=== PATIENT | female | born 1975 | race African-American/Black ===

== ENCOUNTER 2020-10-25 06:45 | Emergency (ER) | payer OTHER ==
[~2020-10-25] VITALS: Ht 172.7 cm; Wt 68.0 kg
[2020-10-25] MEDS ORDERED: ACETAMINOPHEN 500 MG TAB PO ONE (07:15)
[2020-10-25 08:14] VITALS: BP 125/78
== END 2020-10-25 09:24 | disposition home or self-care (01) ==
LOC: ER 06:45
DX: U07.1 COVID-19 (principal); F17.210 Nicotine dependence, cigarettes, uncomplicated
CPT/HCPCS: 36415; 71045; 87426

== ENCOUNTER → 2021-07-26 | Outpatient (CLI) | payer BC | END | disposition home or self-care (01) | LOC: LAB 14:38 | PROVIDERS: ATTEND Nurse Practitioner | DX: Z20.822 Contact with and (suspected) exposure to COVID-19 (principal) ==

== ENCOUNTER → 2021-09-20 | Outpatient (CLI) | payer BC ==
[2021-09-20 12:29] LABS: Basophils # (auto) 0.1 10 ^3/uL (0-0.2); Basophils % (auto) 1.3 % (0.0-2.0); Eosinophils # (auto) 0.1 10 ^3/uL (0-0.8); Eosinophils % (auto) 1.3 % (0.0-7.0); Hematocrit 44.3 % (36.0-46.0); Hemoglobin 14.5 g/dL (12.2-16.2); Lymphocytes # (auto) 2.5 10 ^3/uL (0.4-5.4); Lymphocytes % (auto) 41.1 % (10.0-50.0); Mean Corpuscular Hemoglobin 29.8 pg (28.0-32.0); Mean Corpuscular Hgb Conc. 32.8 g/dL (32.0-36.0); Mean Corpuscular Volume 90.9 fL (80.0-100.0); Monocytes # (auto) 0.4 10 ^3/uL (0-1.3); Neutrophils # (auto) 3.1 10 ^3/uL (1.6-8.6); Neutrophils % (auto) 49.3 % (37.0-80.0); Red Blood Cells 4.88 10^6/uL (4.0-5.20); Red Cell Distribution Width 12.8 % (11.8-14.3); White Blood Cell 6.2 10^3/uL (4.4-10.8)
[2021-09-20 12:31] LABS: Urine Bacteria NONE SEEN /hpf (None Seen); Urine Blood 3+ /uL (Negative); Urine Specific Gravity 1.013 (1.001-1.035); Urine WBC 2 /hpf (0 - 5)
[2021-09-20 13:03] LABS: Potassium 3.7 mmol/L (3.5-5.1)
[2021-09-20 13:09] LABS: BUN/Creatinine Ratio 13.5; Bilirubin, Total 0.4 mg/dL (0.2-1.0); Total Protein 7.7 g/dL (6.4-8.2)
== END | disposition home or self-care (01) ==
LOC: LAB 11:49
PROVIDERS: ATTEND Obstetrics & Gynecology Obstetrics
DX: Z01.818 Encounter for other preprocedural examination (principal)
CPT/HCPCS: 36415; 80053; 81001; 81025; 84702; 85025; 86850; 86900; 86901

== ENCOUNTER → 2021-10-30 | Outpatient (CLI) | payer BC ==
[2021-10-30 11:39] LABS: Follicle Stimulating Hormone 10.56 IU/L (SEE BELOW); Leuteinizing Hormone 7.8 IU/L
== END | disposition home or self-care (01) ==
LOC: LAB 10:18
PROVIDERS: ATTEND Obstetrics & Gynecology
DX: N95.1 Menopausal and female climacteric states (principal)
CPT/HCPCS: 36415; 82670; 83001; 83002; 84403; 84443

== ENCOUNTER 2021-11-16 06:05 | Day surgery (SDC) | payer BC ==
[2021-11-13 10:59] LABS: Basophils # (auto) 0.1 10 ^3/uL (0-0.2); Basophils % (auto) 1.3 % (0.0-2.0); Eosinophils # (auto) 0.1 10 ^3/uL (0-0.8); Eosinophils % (auto) 2.1 % (0.0-7.0); Hematocrit 43.4 % (36.0-46.0); Hemoglobin 14.5 g/dL (12.2-16.2); Lymphocytes # (auto) 2.4 10 ^3/uL (0.4-5.4); Lymphocytes % (auto) 43.6 % (10.0-50.0); Mean Corpuscular Hemoglobin 29.8 pg (28.0-32.0); Mean Corpuscular Hgb Conc. 33.4 g/dL (32.0-36.0); Mean Corpuscular Volume 89.2 fL (80.0-100.0); Monocytes # (auto) 0.4 10 ^3/uL (0-1.3); Monocytes % (auto) 7.5 % (0.0-12.0); Neutrophils # (auto) 2.5 10 ^3/uL (1.6-8.6); Neutrophils % (auto) 45.5 % (37.0-80.0); Nucleated Red Blood Cells % 0.2 %; Red Blood Cells 4.86 10^6/uL (4.0-5.20); Red Cell Distribution Width 12.9 % (11.8-14.3); White Blood Cell 5.5 10^3/uL (4.4-10.8)
[2021-11-13 11:26] LABS: Calcium 9.1 mg/dL (8.5-10.1); Potassium 4.2 mmol/L (3.5-5.1)
[2021-11-13 11:29] LABS: BUN/Creatinine Ratio 10.9; Bilirubin, Total 0.3 mg/dL (0.2-1.0)
[2021-11-13 11:36] LABS: INR 0.95 (0.9-1.15); Partial Thromboplastin Time 27.7 sec (24.6-33.4)
[2021-11-14 16:03] LABS: Urine Bacteria MOD /hpf (None Seen); Urine Blood 3+ /uL (Negative); Urine Specific Gravity 1.011 (1.001-1.035); Urine WBC 4 /hpf (0 - 5)
[~2021-11-16] VITALS: Ht 172.7 cm; Wt 71.7 kg
[~2021-11-16 06:05] MED LIST: ALBUAER3 IN; MONT5CHW23 PO
[2021-11-16] MEDS ORDERED: BUPIVACAINE HCL 0.25% P/F 10 ML VIAL ONE (06:44)
[2021-11-16] MEDS ORDERED: ceFAZolin 1GM/50ML 100 ML IV ONE (06:52)
[2021-11-16] MEDS ORDERED: SUCCINYLCHOLINE CHLORIDE 20 MG/ML 10ML VIAL IV ONE (07:18)
[2021-11-16] MEDS ORDERED: fentaNYL CITRATE 100 MCG/2 ML VL ONE (07:23)
[2021-11-16] MEDS ORDERED: MORPHINE SULF PF 5 MG/10 ML VIAL ONE (07:23)
[2021-11-16] MEDS ORDERED: MIDAZOLAM HCL 2MG/2ML 2ml VIAL (1mg/ml) ONE (07:23)
[2021-11-16] MEDS ORDERED: METOCLOPRAMIDE HCL 5MG/ml INJ 2ml VIAL IV PRN (07:45)
[2021-11-16] MEDS ORDERED: ROCURONIUM 10MG/ML 10ML VIAL IV ONE (07:45)
[2021-11-16] MEDS ORDERED: LABETALOL HCL 5 MG/ML 4ML SYRINGE IV PRN (07:45)
[2021-11-16] MEDS ORDERED: PROPOFOL 10 MG/ML 20 ML IV ONE (07:45)
[2021-11-16] MEDS ORDERED: ePHEDrine SULFATE 50 MG/ML AMP IV PRN (07:45)
[2021-11-16] MEDS ORDERED: KETOROLAC TROMETH 30 MG/ML 1ML VIAL IV ONE (07:45)
[2021-11-16] MEDS ORDERED: ONDANSETRON HCL 4 MG/2 ML VIAL IV PRN ×2 (07:45→08:45)
[2021-11-16] MEDS ORDERED: MORPHINE SULFATE 4 MG/ML SYR/VIAL IV PRN (07:45)
[2021-11-16] MEDS ORDERED: MIDAZOLAM HCL 2MG/2ML 2ml VIAL (1mg/ml) IV PRN (07:45)
[2021-11-16] MEDS ORDERED: DexAMETHasone SOD PHOS 10MG/1ML VIAL INJ ONE (07:45)
[2021-11-16] MEDS ORDERED: ONDANSETRON HCL 4 MG/2 ML VIAL ONE (08:00)
[2021-11-16] MEDS: HYDROmorphone HCL 2 MG/ML VL/or syr IV PRN ×3 (08:28→09:01)
[2021-11-16] MEDS ORDERED: ONDA-144 PO (08:38)
[2021-11-16] MEDS ORDERED: IBUP800T27 PO (08:38)
[2021-11-16] MEDS ORDERED: HYDR-4902 PO (08:38)
[2021-11-16] MEDS ORDERED: LACTATED RINGER'S 1,000 ML IV SCH (08:45)
[2021-11-16 09:15] VITALS: BP 131/81
== END 2021-11-16 10:00 | disposition home or self-care (01) ==
LOC: SUR 06:05
PROVIDERS: ATTEND Obstetrics & Gynecology
DX: Z30.2 Encounter for sterilization (principal); N88.2 Stricture and stenosis of cervix uteri; N73.6 Female pelvic peritoneal adhesions (postinfective); J45.909 Unspecified asthma, uncomplicated; Z88.8 Allergy status to other drugs, medicaments and biological substances; Z90.49 Acquired absence of other specified parts of digestive tract; Z98.891 History of uterine scar from previous surgery; F41.9 Anxiety disorder, unspecified; T83.32XA Displacement of intrauterine contraceptive device, initial encounter; Y83.8 Other surgical procedures as the cause of abnormal reaction of the patient, or of later complication, without mention of misadventure at the time of the procedure
CPT/HCPCS: 36415; 58671; 80053; 81001; 81025; 84702; 85025; 85610; 85730; 86850; 86900; 86901; J0330; J0690; J1100; J1170; J2250; J2270; J2405; J2704; J3010; J3490; U0003

== ENCOUNTER 2022-06-30 10:07 | Emergency (ER) | payer BC, OTHER ==
[~2022-06-30] VITALS: Ht 172.7 cm; Wt 67.2 kg
[~2022-06-30 10:07] MED LIST changes: +HYDR-4902 PO; +IBUP800T27 PO; +ONDA-144 PO
[2022-06-30] MEDS ORDERED: SODIUM CHLORIDE 0.9% 1,000 ML IV ONE (10:30)
[2022-06-30 10:49] LABS: Basophils # (auto) 0 10 ^3/uL (0-0.2); Basophils % (auto) 0.2 % (0.0-2.0); Eosinophils # (auto) 0.2 10 ^3/uL (0-0.8); Eosinophils % (auto) 3.1 % (0.0-7.0); Hematocrit 42.1 % (36.0-46.0); Hemoglobin 14.3 g/dL (12.2-16.2); Lymphocytes # (auto) 2.4 10 ^3/uL (0.4-5.4); Mean Corpuscular Hemoglobin 29.5 pg (28.0-32.0); Mean Corpuscular Hgb Conc. 33.8 g/dL (32.0-36.0); Mean Corpuscular Volume 87.3 fL (80.0-100.0); Monocytes # (auto) 0.4 10 ^3/uL (0-1.3); Monocytes % (auto) 6.8 % (0.0-12.0); Neutrophils # (auto) 2.7 10 ^3/uL (1.6-8.6); Neutrophils % (auto) 46.9 % (37.0-80.0); Nucleated Red Blood Cells % 0.2 %; Red Blood Cells 4.83 10^6/uL (4.0-5.20); Red Cell Distribution Width 13.7 % (11.8-14.3); White Blood Cell 5.7 10^3/uL (4.4-10.8)
[2022-06-30 11:02] LABS: Albumin 3.7 g/dL (3.4-5.0); Calcium 9.1 mg/dL (8.5-10.1)
[2022-06-30 11:07] LABS: BUN/Creatinine Ratio 12.1 (10.0-20.0); Bilirubin, Total 0.2 mg/dL (0.2-1.0); Total Protein 7.1 g/dL (6.4-8.2)
[2022-06-30] MEDS ORDERED: MECL1TAB42 PO (11:18)
[2022-06-30 13:38] VITALS: BP 122/76
== END 2022-06-30 13:43 | disposition home or self-care (01) ==
LOC: ER 10:07
DX: R55 Syncope and collapse (principal); F41.9 Anxiety disorder, unspecified; F17.210 Nicotine dependence, cigarettes, uncomplicated; Z98.890 Other specified postprocedural states
CPT/HCPCS: 36415; 70450; 80053; 82962; 84484; 85025; 93005; 96360; 99284; J7030

== ENCOUNTER 2024-06-14 09:34 | Emergency (ER) | payer OTHER ==
[~2024-06-14] VITALS: Ht 172.7 cm; Wt 70.5 kg
[~2024-06-14 09:34] MED LIST changes: +IBUP-1456 PO; -IBUP800T27 PO; +MECL1TAB42 PO; +MONT5CHW12 PO; -MONT5CHW23 PO
[2024-06-14] MEDS ORDERED: PROM1SOL4 PO (11:11)
[2024-06-14] MEDS ORDERED: FLUC150T38 PO (11:11)
[2024-06-14] MEDS ORDERED: PSEU240T PO (11:11)
[2024-06-14] MEDS ORDERED: ALBU108A5 IN (11:11)
[2024-06-14] MEDS ORDERED: AUG875T PO (11:11)
--- NOTE | 2024-06-14 11:11 | ED.PDOC ---
SOB-HPI HPI Comments This is a pleasant 48-year-old with a history of asthma that presents with a chief complaint of generalized weakness, nonproductive cough and intermittent nausea. Also complains of an intermittent frontal headache that waxes and wanes with no specific pattern Unable to get adequate relief with gpdc-yet-eytdyvd cough and cold medications. 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 History Family History Family History: Unknown Social History Smoker: Cigarettes, Less Than 1 Pack/Day Alcohol: Denies ETOH Use Drugs: Denies Drug Use Lives In: Home All Other Systems: Reviewed and Negative (per hpi) Physical Exam General Appearance: No Apparent Distress, Normal HEENT: Normal ENT Inspection, Pharynx Normal, TMs Normal Neck: Full Range of Motion, Non-Tender, Normal, Normal Inspection Respiratory: Chest Non-Tender, Lungs Clear, No Accessory Muscle Use, No Respiratory Distress, Normal Breath Sounds Cardiovascular: No Murmur, No Gallop, Regular Rate/Rhythm Breast Exam: Deferred Gastrointestinal: No Organomegaly, Non Tender, No Pulsatile Mass, Normal Bowel Sounds, Soft Genitalia: Deferred Pelvic: Deferred Rectal: Deferred Extremities: No calf tenderness, Normal capillary refill, Normal inspection, Normal range of motion, Non-tender, No pedal edema Musculoskeletal : Apperance: Normal Neurologic: Alert, No Motor Deficits, Normal Affect, Normal Mood, No Sensory Deficits Cerebellar Function: Normal Reflexes: Normal Skin: Dry, Normal Color, Warm Lymphatic: No Adenopathy Was a procedure done? Was a procedure done?: No Differential Dx Differential Diagnosis: Pneumonia, Sinusitis, URI X-Ray, Labs, Meds, VS Vital Signs Date Time Temp Pulse Resp B/P (MAP) Pulse Ox O2 Delivery O2 Flow Rate FiO2 06/14/24 11:30 98.3 85 18 133/80 (97) 97 98.3 06/14/24 11:30 85 18 97 Room Air 06/14/24 09:40 18 97 Room Air* 0 21 06/14/24 09:40 98.3 85 18 133/80 (97) 97 98.3 X-Ray, Labs, Meds, VS Comment The patient's presentation and chest x-ray findings are consistent with pneumonia. ABx Rx to cover for community-acquired pneumonia in addition to symptomatic treatment The patient is overall well-appearing and does not appear to be clinically toxic. Therefore, the patient is a good candidate for outpatient treatment. The patient was given Antibiotics to treat for pneumonia. The patient was reassessed throughout the ED visit and remained stable. The patient did not require any supplemental oxygen while in the ED. The patient was able to ambulate as well as tolerate p.o. intake in the ED. discussed the management plan with the patient who was in agreement, strict return precautions to the ED were given Time of 1ST Reevaluation: 11:08 Reevaluation 1ST: Improved Patient Education/Counseling: Diagnosis, Treatment Family Education/Counseling: Diagnosis, Treatment Departure 1 Departure Time of Disposition: 11:11 Impression: Primary Impression: Headache Qualified Codes: R51.9 - Headache, unspecified Additional Impressions: AOM (acute otitis media) Qualified Codes: H66.002 - Acute suppurative otitis media without spontaneous rupture of ear drum, left ear Acute middle ear effusion Qualified Codes: H65.192 - Other acute nonsuppurative otitis media, left ear Malaise Multifocal pneumonia Disposition: HOME / SELF CARE / HOMELESS Condition: Fair e-Prescriptions Azithromycin (Azithromycin) 250 Mg Tab 250 MG PO DAILY MDD 500 for 5 Days, #6 TAB 0 Refills 2 TABLETS ORALLY ON DAY ONE, THEN 1 TABLET ORALLY DAILY FOR 4 DAYS Prov: GIOVANA MENDEZ NP 06/14/24 Promethazine-Dm (Promethazine Dm 6.25-15 mg/5Ml) 1 Sammie Sammie 5 ML PO TIDP PRN for 10 Days, #150 ML 0 Refills Prov: GIOVANA MENDEZ NP 06/14/24 Fluconazole (Diflucan) 150 Mg Tab 1 TAB PO ONCE for 1 Day, #1 TAB 0 Refills Prov: GIOVANA MENDEZ NP 06/14/24 Pseudoephedrine (Sudafed 24 Hour) 240 Mg Tab 240 MG PO DAILY for 10 Days, #10 TAB 0 Refills Prov: GIOVANA MENDEZ NP 06/14/24 Albuterol Sulfate (Albuterol Sulfate Hfa) 108 Mcg/Act Aer 1 PUFF IN Q6HP PRN for 10 Days, #1 AER 0 Refills Prov: GIOVANA MENDEZ [employer]CEIVING ASSOCIATE 06/14/24 Amoxicillin & Pot Clavulanate (AUGMENTIN TABLET) 875 Mg Tb 875 MG PO BID for 7 Days, #14 TAB 0 Refills Prov: GIOVANA MENDEZ [employer]RECEIVING ASSOCIATE 06/14/24 Critical Care Note Critical Care Time?: No Stability Stability form required: No Heart Score Heart Score: Heart Score Response (Comments) Value History N/A 0 EKG N/A 0 Age N/A 0 Risk Factors N/A 0 Troponin N/A 0 Total 0 GIOVANA MENDEZ [employer]CH[employer]CEIVING [employer]OCIATE Jun 14, 2024 11:11
[2024-06-14 11:30] VITALS: BP 133/80; PULSE 85; RESP 18; TEMP 98.3; O2SAT 97
--- NOTE | 2024-06-14 11:41 | DVH ---
CHEST RADIOGRAPH Indication: R/o pna Technique: Single frontal view of the chest was obtained Comparison: CHEST XRAY 1 VIEW on DOS: 10/25/20, CXR1 on DOS: 10/25/20 FINDINGS: Lines and Tubes: None Lungs: Multifocal airspace opacities. Pleura: No effusion. No pneumothorax. Cardiomediastinal contours: Unremarkable Bones: No acute osseous abnormality. IMPRESSION: Multifocal pneumonia
[2024-06-14] MEDS ORDERED: AZIT-43 PO (14:26)
[2024-06-14] MEDS ORDERED: IBUP1TAB5 PO (14:32)
== END 2024-06-14 11:32 | disposition home or self-care (01) ==
LOC: ER 09:34
DX: J18.8 Other pneumonia, unspecified organism (principal); H65.192 Other acute nonsuppurative otitis media, left ear; R51.9 Headache, unspecified; R53.81 Other malaise; R11.0 Nausea; F17.210 Nicotine dependence, cigarettes, uncomplicated; F41.9 Anxiety disorder, unspecified; J45.909 Unspecified asthma, uncomplicated; Z98.51 Tubal ligation status
CPT/HCPCS: 71045